=== PATIENT | female | born 1930 | race Caucasian/White ===

== ENCOUNTER → 2017-02-27 | Outpatient (CLI) | payer MEDICARE, OTHER ==
--- NOTE | 2017-02-27 17:01 | US ---
EXAM DESCRIPTION: Venous,Lower Extremity RT CLINICAL HISTORY: 86 years, Female, CELLULITIS AND EDEMA COMPARISON: None TECHNIQUE: Duplex venous ultrasound of the right lower extremity was performed. FINDINGS: The right lower extremity veins are fully compressible and demonstrate physiologic responses to Valsalva maneuvers. Color Doppler images show no intraluminal filling defect. IMPRESSION: Negative exam. No evidence of DVT in the right lower extremity. Electronically signed by: Bob Lowry MD 02/27/2017 5:01 PM CDT Workstation: [id number]
== END | disposition home or self-care (01) ==
LOC: US 16:05
PROVIDERS: ATTEND Nurse Practitioner Family
DX: L03.115 Cellulitis of right lower limb (principal); R60.0 Localized edema